=== PATIENT | female | born 1950 | race Caucasian/White ===

== ENCOUNTER 2020-10-16 10:59 | Outpatient (REF) | payer MEDICARE, SELFPAY ==
[2020-10-16 11:20] LABS: MANUAL DIFF FLAG NO
[2020-10-16 11:22] LABS: Basophils Absolute Auto 0.1 X10*3/uL (0.0-0.2); Eosinophils Absolute Auto 0.2 X10*3/uL (0.0-0.4); Eosinophils Percent Auto 3.3 % (0-4); Hemoglobin 15.2 g/dl (12.0-16.0); Imm Gran Abs Auto 0.03 X10*3/uL (0.00-0.03); Imm Gran Pct Auto 0.5 % (0.0-0.4); Lymphocytes Absolute Auto 1.7 X10*3/uL (1.2-4.9); Mean Corpuscular HGB Conc 32.3 g/dl (31.0-35.0); Mean Corpuscular Hemoglobin 31.8 pg (27.0-33.0); Mean Corpuscular Volume 98.3 fL (80-98); Mean Platelet Volume 9.9 fL (9.4-12.3); Monocytes Absolute Auto 0.4 X10*3/uL (0.1-1.2); Neutrophils Absolute Auto 3.6 X10*3/uL (2.0-8.3); Neutrophils Percent Auto 60.2 % (45-73); Platelet Count 236 X10*3/uL (160-400); Red Blood Count 4.78 X10*6/uL (4.20-5.50)
[2020-10-16 12:04] LABS: Iron 98 mcg/dL (30-160); Percent Iron Saturation 30 % (15-50); Total Iron Binding Capacity 325 mcg/dL (228-428); Unsaturated Iron Binding 227 ug/dL
[2020-10-16 12:25] LABS: Ferritin 51 ng/mL (10-250)
== END 2020-10-16 11:00 | disposition home or self-care (01) ==
LOC: HO.BBR 10:59
PROVIDERS: PCP Internal Medicine; Visit Provider Internal Medicine Medical Oncology
DX: E83.110 Hereditary hemochromatosis (principal)
CPT/HCPCS: 36415; 82728; 83540; 85025

== ENCOUNTER 2020-10-16 11:34 | Outpatient (REF) | payer SELFPAY ==
[2020-10-16 12:37] LABS: Cholesterol 233 mg/dL
== END 2020-10-16 11:35 | disposition home or self-care (01) ==
LOC: HO.LNC 11:34
PROVIDERS: Visit Provider Pathology Anatomic Pathology & Clinical Pathology
DX: Z13.220 Encounter for screening for lipoid disorders (principal)
CPT/HCPCS: 82465

== ENCOUNTER 2021-11-11 14:56 | Outpatient (REF) | payer MEDICARE, SELFPAY ==
[2021-11-11 15:54] LABS: MANUAL DIFF FLAG NO
[2021-11-11 16:10] LABS: Basophils Absolute Auto 0.1 X10*3/uL (0.0-0.2); Basophils Percent Auto 1.1 % (0-2); Eosinophils Absolute Auto 0.3 X10*3/uL (0.0-0.4); Eosinophils Percent Auto 3.8 % (0-4); Hematocrit 41.6 % (37.0-47.0); Hemoglobin 13.4 g/dl (12.0-16.0); Imm Gran Abs Auto 0.04 X10*3/uL (0.00-0.03); Imm Gran Pct Auto 0.6 % (0.0-0.4); Lymphocytes Absolute Auto 2.1 X10*3/uL (1.2-4.9); Lymphocytes Percent Auto 29.3 % (20-40); Mean Corpuscular HGB Conc 32.2 g/dl (31.0-35.0); Mean Corpuscular Hemoglobin 29.5 pg (27.0-33.0); Mean Corpuscular Volume 91.4 fL (80.0-98.0); Monocytes Absolute Auto 0.7 X10*3/uL (0.1-1.2); Monocytes Percent Auto 9.1 % (2-11); Neutrophils Percent Auto 56.1 % (45-73); Platelet Count 265 X10*3/uL (160-400); Red Blood Count 4.55 X10*6/uL (4.20-5.50); Red Cell Distribution Width 15.9 % (11.0-16.0); White Blood Count 7.1 X10*3/uL (4.8-10.8)
[2021-11-11 16:53] LABS: Alanine Aminotransferase 16 U/L (0-31); Albumin Level 4.1 g/dL (3.5-5.0); Alkaline Phosphatase 92 U/L (39-117); Anion Gap 13 (12-20); Aspartate Amino Transferase 15 U/L (5-31); Bilirubin Total 0.7 mg/dL (0.0-1.0); Blood Urea Nitrogen 13 mg/dL (9-16); Calcium 9.6 mg/dL (8.4-10.2); Carbon Dioxide 26 mmol/L (22-29); Chloride 107 mmol/L (96-108); Estimated Glomerular Filt Rate > 60; Glucose Random 116 mg/dL (60-115); Iron 83 mcg/dL (30-160); Percent Iron Saturation 27 % (15-50); Potassium 4.9 mmol/L (3.3-5.1); Sodium 141 mmol/L (135-145); Total Iron Binding Capacity 304 mcg/dL (228-428); Total Protein 7.3 g/dL (6.5-8.0); Unsaturated Iron Binding 221 ug/dL
[2021-11-11 17:13] LABS: Ferritin 47 ng/mL (10-250)
== END 2021-11-11 14:57 | disposition home or self-care (01) ==
LOC: HO.LAB 14:56
PROVIDERS: PCP Internal Medicine; Visit Provider Internal Medicine Medical Oncology
DX: E83.110 Hereditary hemochromatosis (principal)
CPT/HCPCS: 36415; 80053; 82728; 83540; 85025

== ENCOUNTER 2024-07-18 13:37 | Outpatient (AMB) | payer MEDICARE, SELFPAY ==
--- NOTE | 2024-07-18 13:39 | MHC.PC.OV ---
Vital Signs 07/18/24 13:44 Height 5 ft 3.5 in Weight 185 lb 2 oz BMI 32.3 BP 132/80 Blood Pressure Location Rt brachial Position Sitting Pulse 90 Pulse Source Pulse Oximeter Pulse Oximetry (%) 94 Oxygen Delivery Method Room Air Intake Visit Reasons: Follow Up Per Dr Kaba Underwater Photographer Required: No Accompanied by: Self / Same As Patient Allergies amlodipine Allergy (Unknown, Verified 07/18/24 13:42) Unknown atorvastatin [Lipitor] Allergy (Unknown, Verified 07/18/24 13:42) Unknown erythromycin base [From E-MYCIN] Allergy (Unknown, Verified 07/18/24 13:42) HIVES ezetimibe [Zetia] Allergy (Unknown, Verified 07/18/24 13:42) Unknown hydrochlorothiazide Allergy (Unknown, Verified 07/18/24 13:42) Unknown lisinopril Allergy (Unknown, Verified 07/18/24 13:42) Unknown morphine Allergy (Unknown, Verified 07/18/24 13:42) rash moxifloxacin [Avelox] Allergy (Unknown, Verified 07/18/24 13:42) Unknown oxycodone Allergy (Unknown, Verified 07/18/24 13:42) Unknown penicillin V Allergy (Unknown, Verified 07/18/24 13:42) Unknown Penicillins [PENICILLINS] Allergy (Unknown, Verified 07/18/24 13:42) HIVES pravastatin Allergy (Unknown, Verified 07/18/24 13:42) Unknown rosuvastatin [Crestor] Allergy (Unknown, Verified 07/18/24 13:42) Unknown E-mycin Allergy (Unknown, Uncoded 07/18/24 13:42) hives Erythromycin Allergy (Unknown, Uncoded 07/18/24 13:42) Unknown From TAGAMET Allergy (Unknown, Uncoded 07/18/24 13:42) SWELLS INTERNALLY From ZANTAC Allergy (Unknown, Uncoded 07/18/24 13:42) SWELLS INTERNALLY PCN Allergy (Unknown, Uncoded 07/18/24 13:42) hives statins Allergy (Unknown, Uncoded 07/18/24 13:42) myalgia Statins Support Allergy (Unknown, Uncoded 07/18/24 13:42) muscle aches zantac, tagamet,omeprazole Allergy (Unknown, Uncoded 07/18/24 13:42) Unknown Tobacco use date assessed: 07/18/24 Fall risk assessment: No Falls in past year Last assessed Fall Risk: 07/18/24 Dental Screening Dental Screen Date: 07/18/24 Did you have a dental visit in the last 12 months?: Yes Did you have a dental problem in the last 6 months where you did not have access to dental care?: No Was dental information given to patient?: Patient has dentist HPI Follow Up Per Dr Kaba HPI Details 73-year-old Obese female with history of asthma, hemochromatosis hypertension hypothyroidism coming in for an acute problem . Patient is up-to-date with colonoscopy July 2021 ER visit for hypertension and chest pain 10/19/2023. 2 weeks ago R shoulder pain. stopped amlodipine aand the shoulder is better but stopped due to leg swelling patient has been cleaning up mom's house with just and developed right shoulder pain denies any fall or trauma but this has been going on for about [address] Gonzalez in [facility] and was given Flexeril as well as MRI done which results are pending. Otherwise asthma still flaring up once in a while on Breo declined any additional medication blood pressure medication continues with amlodipine taken off but will be monitoring for the blood pressure. Discussed that amlodipine would not have anything to do with right shoulder but it does cause lower extremity swelling. [facility] Medical History (Updated 07/18/24 @ 14:31 by Keisha Kaba MD) Breast cancer Surgical History (Updated 07/18/24 @ 14:07 by Keisha Kaba MD) H/O bilateral mastectomy Hx of appendectomy Family History (Updated 07/18/24 @ 13:51 by KRYSTLE Mckeon) Other Colorectal cancer Social History Housing: House Patient Tobacco Use Status: Never used Tobacco e-Cigarette/Vaping Use: Never Used Second Hand Smoke Exposure: No service: No Current occupational status: retired Current occupational exposures/hazards: No Cognitive needs: No Hearing needs: No Vision needs: No Questionnaire PHQ-9 Over the last 2 weeks, how often have you been bothered by any of the following problems? 1. Little interest or pleasure in doing things: not at all 2. Feeling down, depressed, or hopeless: not at all 3. Trouble falling or staying asleep, or sleeping too much: not at all 4. Feeling tired or having little energy: not at all 5. Poor appetite or overeating: not at all 6. Feeling bad about yourself - or that you are a failure or have let yourself or your family down: not at all 7. Trouble concentrating on things, such as reading the newspaper or watching television: not at all 8. Moving or speaking so slowly that other people could have noticed. Or the opposite - being so fidgety or restless that you have been moving around a lot more than usual: not at all 9. Thoughts that you would be better off or of hurting yourself in some way: not at all Total score: 0 Source: Developed by Drs. Marbin Levin, Cira Pretty, Leo Lui and colleagues, with an educational caron from [employer]. Thrive Questionnaire Date Thrive assessed: 07/18/24 I am a: Patient What is your living situation today?: I have a steady place to live Within the past 12 months, did the food you bought not last and you didn't have the money to get more?: Never true Within the past 12 months, did you worry whether your food would run out before you got money to buy more?: Never true Do you have trouble paying for medicines?: No Do you have trouble getting transportation to medical appointments?: No Do you have trouble paying your heating and electricity bill?: No Do you have trouble taking care of your child, family member or friend?: No Do you have trouble with day-to-day activities such as bathing, preparing meals, shopping, managing finances, etc.?: No Are you currently unemployed and looking for a job?: No Are you interested in more education?: No Please select the resources that you would like help with: None Currently or been in a relationship where the following occur: No concerns reported THRIVE Score: 0 AUDIT C Alcohol Use Questionnaire (AUDIT-C) 1. How often do you have a drink containing alcohol?: Monthly or less 2. How many drinks containing alcohol do you have on a typical day when you are drinking?: 1 or 2 3. How often do you have six or more drinks on one occasion?: Never Total Score: 1 MOOSE-7 AMB Questionnaire MOOSE-7 Date MOOSE - 7 assessed: 07/18/24 Feeling nervous, anxious, or on edge: 0 = Not at all Not being able to stop or control worryin = Not at all Worrying too much about different things: 0 = Not at all Trouble relaxin = Not at all Being so restless that it is hard to sit still: 0 = Not at all Becoming easily annoyed or irritable: 0 = Not at all Feeling afraid as if something awful might happen: 0 = Not at all Total MOOSE-7 score (0-4 normal; 5-9 mild; 10-14 moderate; 15-21 severe): 0 Source: Developed by Drs. Marbin Levin, Cira Pretty, Leo Lui and colleagues, with an educational craon from [employer]. Physical exam (Primary Care) Vital Signs: Last Vital Signs Pulse 90 07/18/24 13:44 BP 132/80 07/18/24 13:44 Pulse Ox 94 07/18/24 13:44 Oxygen Delivery Method Room Air 07/18/24 13:44 BMI result Body Mass Index 32.3 Tobacco/Smoking Status: Tobacco use Status Tobacco use date assessed 07/18/24 07/18/24 13:53 Patient Tobacco Use Status Never used Tobacco 07/18/24 13:53 e-Cigarette/Vaping Use Never Used 07/18/24 13:53 PHQ-9: PHQ-9 Score PHQ-9: Total score 0 07/18/24 13:53 Thrive Assessment: Date of Thrive Assessment Date Thrive assessed 07/18/24 07/18/24 13:53 Currently or been in a relationship where the following occur: No concerns reported Const General: alert; No acute distress Eyes Conjunctivae: conjunctivae normal Resp Auscultation: clear to auscultation bilaterally Cardio Rate: regular rate Rhythm: regular rhythm GI Inspection: Yes normal to inspection Extrem General: Yes normal to inspection and No edema Assessment and Plan Assessment & Plan (1) Hypercholesterolemia: Code(s): E78.00 - Pure hypercholesterolemia, unspecified Plan: Avoid fried foods, chicken skin, eggs, butter margarine, pastries and meat. Be it pork or beef they have a lot of cholesterol LDL goal of less than 130 and triglyceride of less than 150 on Zetia only due to statin intolerance. (2) Asthma: Code(s): J45.909 - Unspecified asthma, uncomplicated Plan: On Breo inhaler and Xopenex (3) Hemochromatosis: Code(s): E83.119 - Hemochromatosis, unspecified Plan: Continue to follow-up with Hematology-Oncology (4) Hypothyroidism: Code(s): E03.9 - Hypothyroidism, unspecified Plan: On thyroid medication need repeat blood work.- [employer] bloodwork (5) Hypertension: Code(s): I10 - Essential (primary) hypertension Plan: Continue with blood pressure medication. Decrease salt intake and exercise on losartan 50 mg twice a day metoprolol succinate. With the amlodipine taken off will continue to monitor blood pressure. (6) GERD (gastroesophageal reflux disease): Code(s): K21.9 - Gastro-esophageal reflux disease without esophagitis Plan: Avoid the foods that causes that usually spicy foods, tomato products, juices, coffee, soda and foods that your sensitive to. After eating do not lie down, allow 3-4 hours before in lie down. And keep the head of bed above 30 degrees to avoid the acid from going up. (7) Osteoporosis: Code(s): M81.0 - Age-related osteoporosis without current pathological fracture Plan: Presently on alendronate and bone density reminder (8) Right shoulder pain: Code(s): M25.511 - Pain in right shoulder Plan: Resolving, most likely from the cleaning of the house. Heat does help, continue with activity. MRI pending Coding Level of Care Code Est Pt Level 4 (77630) Diagnoses Hypercholesterolemia E78.00 Asthma J45.909 Hemochromatosis E83.119 Hypothyroidism E03.9 Hypertension I10 GERD (gastroesophageal reflux disease) K21.9 Osteoporosis M81.0 Right shoulder pain M25.511
[2024-07-18 13:44] VITALS: BP 132/80; PULSE 90; O2SAT 94; BMI 32.3
== END 2024-07-18 14:31 | disposition home or self-care (01) ==
PROVIDERS: PCP Internal Medicine; Visit Provider Internal Medicine
DX: E78.00 Pure hypercholesterolemia, unspecified (principal); J45.909 Unspecified asthma, uncomplicated; E83.119 Hemochromatosis, unspecified; E03.9 Hypothyroidism, unspecified; I10 Essential (primary) hypertension; K21.9 Gastro-esophageal reflux disease without esophagitis; M81.0 Age-related osteoporosis without current pathological fracture; M25.511 Pain in right shoulder
CPT/HCPCS: 99214

== ENCOUNTER → 2025-08-03 10:53 | Outpatient (BNV) | payer MEDICARE, SELFPAY | PROVIDERS: Visit Provider Internal Medicine Medical Oncology | DX: E83.119 Hemochromatosis, unspecified (principal); Z86.000 Personal history of in-situ neoplasm of breast | CPT/HCPCS: 99204 ==

== ENCOUNTER 2025-08-14 12:58 | Outpatient (REF) | payer MEDICARE, SELFPAY ==
--- OUTSIDE RECORDS SUMMARY | 2025-08-14 17:56 | XMS_ITS | Clinical Summary ---
Author Organization [facility] Address [address] [place] [address] Phone Care Team Providers Care Heavy Equipment Operator Apprentice Name Role Phone Zainab Wheeler MD Primary Care Provider [phone] Allergies Active Allergy Reactions Criticality Noted Date Comments Cimetidine Hives Low 08/11/2016 Meperidine Other (See Comments) High 09/17/2018 Hear block Hydrochlorothiazide Rash Low 04/26/2019 Atorvastatin Hives Low 04/26/2019 Omeprazole Hives Low 04/26/2019 Pantoprazole 05/25/2020 Penicillins Hives Low 12/10/2012 Oxycodone-Acetaminophen Nausea and/or Vomiting Medium 04/26/2019 Ranitidine Hcl Hives Low 08/11/2016 Izyunnl-Ipa-Gwa Reductase Inhibitors Musculoskeletal Pain Medium 09/17/2018 Medications levalbuterol (XOPENEX) 0.31 mg/3 mL nebulizer solution Inhale into the lungs. Active SYNTHROID 88 mcg tablet 100 mcg. 8 Active metoprolol succinate (TOPROL-XL) 100 MG 24 hr tablet Take 100 mg by mouth. 8 Active BREO ELLIPTA 100-25 mcg/dose inhaler 9 Active montelukast (SINGULAIR) 10 mg tablet Take 10 mg by mouth. 0 Active esomeprazole (NEXIUM) 20 MG capsule Take 20 mg by mouth. 0 Active losartan (COZAAR) 25 MG tablet 2 Active ezetimibe (ZETIA) 10 mg tablet Take 1 tablet by mouth every morning. 3 Active amLODIPine (NORVASC) 5 MG tablet Take 5 mg by mouth. 3 Active alendronate (FOSAMAX) 70 MG tablet 4 Active cyclobenzaprine (FLEXERIL) 10 MG tabletIndicatio ns:Cervical facet joint syndrome Take 1 tablet (10 mg total) by mouth 3 (three) times a day as needed. 90 tablet 4 Active Additional Information Patient not taking.Reported on 07/12/2025 azithromycin (ZITHROMAX Z-EDDIE) 250 MG tablet Take 2 tablets on day 1, and take 1 tablet on days 2 through 5 for a total of 5 days. 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 Hereditary hemochromatosis 12/10/201209/13 Pure hypercholesterolemia 12/10/20122022 Tendinitis, de Quervain's 12/10/20122022 Encounters Date Type Department Care Team Description 07/12/2025 12:00 PM EDT Office Visit [facility] at [address] [address] Emilia Vincent NP Cat bite, initial encounter (Primary Dx) from Last 3 Months Immunizations Immunization Administration Dates Next Due Pneumococcal conjugate PCV13 05/03/2019(Deferred : Patient Refused) Tdap 05/06/2024 Social History Tobacco Use Types Packs/Day Years Used Date Smoking Tobacco: Never Smokeless Tobacco: Never Alcohol Use Standard Drinks/Week Comments Yes 1 (1 standard drink = 0.6 oz pur e alcohol) once a month Education Answer Date Recorded Are you interested in more education? Not on frantz e 03/27/2023 Are you concerned about learning? Not on file 03/27/2023 No 03/27/2023 No 03/27/2023 Digital Access Answer Date Recorded No 04/27/2023 No 04/27/2023 Reliable internet access at home? Not on file 04/27/2023 Device with a working camera? Not on file Comments No Sex and Gender Information Value Date Recorded Sex Assigned at Not on file Legal Sex Female 4:31 PM EDT Gender Identity Not on file Sexual Orientation Not on file Last Filed Vital Signs Vital Sign Reading Time Taken Comments Blood Pressure 128/82 07/12/2025 12:05 PM EDT Pulse 71 07/12/2025 12:05 PM EDT Temperature 37.1 C (98.7 F) 07/12/2025 12:05 PM EDT Respiratory Rate 18 07/12/2025 12:05 PM EDT Oxygen Saturation 99% 07/12/2025 12:05 PM EDT Inhaled Oxygen Concentration - - Weight 82.6 kg (182 lb) 07/12/2024 2:52 PM EDT Height 162.6 cm (5' 4 ) 07/12/2024 2:52 PM EDT Body Mass Index 31.24 07/12/2024 2:52 PM EDT Plan of Treatment Health Maintenance Due Date Last Done Comments LIPID PANEL 1950 DEPRESSION SCREENING 1962 HEPATITIS C SCREENING 1968 ZOSTER VACCINES (1 of 2) 1969 COLOGUARD 1995 COLONOSCOPY 1995 COLORECTAL CANCER SCREENING 1995 FIT TEST 1995 FOBT 1995 SIGMOIDOSCOPY 1995 VIRTUAL COLONOSCOPY 1995 OSTEOPOROSIS SCREENING INITI AL (ONE-TIME) 2015 CREATININE LEVEL 05/03/2020 05/03/2019, 04/13/2019 POTASSIUM LEVEL 05/03/2020 05/03/2019, 04/13/2019 PNEUMOCOCCAL VACCINES (50+ years) (2 of 2 - PCV) 08/15/2020 08/15/2019 TSH LEVEL 06/27/2025 06/27/2024 INFLUENZA VACCINE (#1) 2025 8, 11/13/2017 COVID-19 VACCINE (2 - 2024-2 6 season) 2025 11/02/2021 RSV VACCINE (1 - 1-dose 75+ series) 2025 Adult Td,Tdap Booster 05/06/2034 05/06/2024 , 04/12/2018 SMOKING STATUS SCREENING (On ce After 26 Yrs) Completed 05/06/2024 HEPATITIS A VACCINES Aged Out No long er eligible based on patient's age to complete this topic HIB VACCINES Aged Out No longer eligi ble based on patient's age to complete this topic MENINGOCOCCAL VACCINES (ACWY) Aged Out No longer eligible based on patient's age to complete this topic MENINGOCOCCAL VACCINES (B) Aged Out N o longer eligible based on patient's age to complete this topic Medical Devices Implanted Type Area Keno Manager Device Identifier Shelf Expiration Date Model / Serial / Lot Cement Bone Biomet Standard R 1x40 - [id number] Implanted:Qty: 1 on 05/02/2019 by Brandon Valenzuela MD at [facility] Right: Knee NEGRITO / DIV OF BRISTOL SQUIBB 04/29/2023 [id number] / / [id number] Knee Insert [id number] Implant Bring Vanguard 08 - [id number] Implanted:Qty: 1 on 05/02/2019 by Brandon Valenzuela MD at [facility] Left: Knee [employer] 02/16/2024 [id number] / / [id number] Tray Beam 67mm Tibial Primary Vanguard Montara I Revision Interlock Cemented - [id number] Implanted:Qty: 1 on 05/02/2019 by Brandon Valenzuela MD at [facility] Right: Knee [employer] 11/01/2028 [id number] / / [id number] Box Component 62.5mm Femoral Knee Vanguard Interlok Montara Posterior Stabilized Open Cemented Right - [id number] Implanted:Qty: 1 on 05/02/2019 by Brandon Valenzuela MD at [facility] Right: Knee [employer] 02/03/2029 [id number] / / [id number] Knee Implant Component 24x8.5mm Prosthesis Patellar Vanguard Series A Asymmetric 3 Peg - [id number] Implanted:Qty: 1 on 05/02/2019 by Brandon Valenzuela MD at [facility] Right: Knee NEGRITO / DIV OF Storrz 09/12/2023 [id number] / / [id number] Knee Insert [id number] Implant Bring Vanguard 08 - [id number] Implanted:Qty: 1 on 05/02/2019 by Brandon Valenzuela MD at [facility] Right: Knee [employer] 03/23/2024 [id number] / / [id number] Cement Bone Biomet Standard R 1x40 Us - [id number] Implanted:Qty: 1 on 05/02/2019 by Brandon Valenzuela MD at [facility] Left: Knee NEGRITO / DIV OF Storrz 04/29/2023 [id number] / / [id number] Knee Implant Component 31x8mm Prosthesis Patellar Vanguard Series A Asymmetric 3 Peg - [id number] Implanted:Qty: 1 on 05/02/2019 by Brandon Valenzuela MD at [facility] Left: Knee NEGRITO / DIV OF Storrz 03/15/2024 [id number] / / [id number] Tray Beam 67mm Tibial Primary Vanguard Montara I Revision Interlock Cemented - [id number] Implanted:Qty: 1 on 05/02/2019 by Brandon Valenzuela MD at [facility] Left: Knee [employer] 01/20/2029 [id number] / / [id number] Box Component 62.5mm Femoral Knee Vanguard Interlok Montara Posterior Stabilized Open Cemented Left - [id number] Implanted:Qty: 1 on 05/02/2019 by Brandon Valenzuela MD at [facility] Left: Knee [employer] 01/03/2029 [id number] / / [id number] Procedures Procedure Name Priority Date/Time Associated Diagnosis Comments TSH Routine 06/27/2024 1:30 PM EDT Acquired hypothyroidism BASIC METABOLIC PANEL Routine 05/03/2019 4:44 AM EDT from Last 3 Months or Most Recently Relevant to Health Maintenance Results * TSH (06/27/2024 1:30 PM EDT) TSH 1.31 0.27 - 4.20 uIU/mL [facility] Blood 06/27/2024 1:30 PM EDT 06/27/2024 1:40 PM EDT us Zainab Wheeler MD LAB BLOOD ORDERABLES Debo peralta Result Performing Organization Address [facility] Co de Phone Number [address] [address] * (ABNORMAL) Basic metabolic panel (05/03/2019 4:44 AM EDT) SODIUM 141 133 - 146 mmol/L [facility] CHLORIDE 106 96 - 108 mmol/L [facility] POTASSIUM 4.0 3.3 - 5.1 mmol/L [facility] CO2 25 21 - 35 mmol/L [facility] BUN 9 6 - 19 mg/dL [facility] CREATININE 0.60 0.5 - 1.5 mg/dL [facility] GLUCOSE 116(H) 70 - 99 mg/dL [facility] CALCIUM 8.5 8.4 - 10.3 mg/dL [facility] EGFR 94 >59 mL/min/1.7 3m2 [facility] Comment:If patient is black, multiply result by 1.159. Estimated glomerular filtration rate calculated using the CKD-EPI equation. ANION GAP 14 10 - 20 mmol/L [facility] Blood 05/03/2019 4:44 AM EDT 05/03/2019 4:54 AM EDT us Brandon Valenzuela MD LAB BLOOD ORDERABLES Final R esult Performing Organization Address [facility] Co de Phone Number [address] [address] from Last 3 Months or Most Recently Relevant to Health Maintenance Insurance MEDICARE PART A & B [employer] MEDEX SUPPLEMENT MEDICARE PART A & B [employer] MEDEX SUPPLEMENT MEDICARE PART A & B [employer] SUPPLEMENT MEDICARE PART A & B [employer] SUPPLEMENT MEDICARE PART A & B MEDEX SUPPLEMENT MEDICARE PART A & B [employer] MEDEX SUPPLEMENT MEDICARE PART A & B [employer] MEDEX SUPPLEMENT MEDICARE PART A & B [employer] MEDEX SUPPLEMENT MEDICARE PART A & B [employer] MEDEX SUPPLEMENT Advance Directives For more information, please contact: [phone] (9AM - 5PM [facility], Thursday-Thursday) Documents on File Type Date Recorded Patient Speech Pathology Teacher Expl anation Healthcare Proxy 05/06/2019 12:05 PM * Full Code (Presumed) (Latest Code Status on File) Date Activated Date Inactivated Comments 05/02/2019 3:34 PM 05/05/2019 4:32 PM * Full Code (Presumed) Date Activated Date Inactivated Comments 05/02/2019 6:25 AM 05/02/2019 3:34 PM Care Teams Heavy Equipment Operator Apprentice Relationship Specialty Start Date End Date Zainab Wheeler MD [address] [place] [address] PCP - General Internal Medicine 06/28/24 Additional Source Comments The information contained in this document represents components of the legal health record. It is not the complete legal health record.[facility]
--- OUTSIDE RECORDS SUMMARY | 2025-08-14 17:57 | XMS_ITS | Encounter Summary ---
Author Organization [facility] Address [address] [place] [address] Phone Care Team Providers Care Information Officer Name Role Phone Keisha Kaba MD Primary Care Provider [phone] Pcp, Unknown Primary Care Provider Unavailabl e Unknown, Unknown Primary Care Provider Zainab Trujillo MD Primary Care Provider [phone] Encounter Details Date Type Department Care Team (Late st Contact Info) Description 05/02/2019 Procedure Pass OR Admitting Dept - Virtual Department [address] [place] [address] Social History Tobacco Use Types Packs/Day Years Used Date Smoking Tobacco: Never Smokeless Tobacco: Never Alcohol Use Standard Drinks/Week Comments Yes 1 (1 standard drink = 0.6 oz pur e alcohol) once a month Comments No Sex and Gender Information Value Date Recorded Sex Assigned at Not on file Legal Sex Female 4:31 PM EDT Gender Identity Not on file Sexual Orientation Not on file documented as of this encounter Plan of Treatment Not on file documented as of this encounter Visit Diagnoses Not on filedocumented in this encounter Additional Health Concerns Infection Onset Date Last Indicated Resolved Time CoV-Risk 07/23/2022 07/23/2022 08/03/2022 1:21 AM EDT COVID-19 09/13/2023 09/13/2023 10/04/2023 1:21 AM EDT documented as of this encounter Care Teams Information Officer Relationship Specialty Start Date End Date Keisha Kaba MD [address] [place] [address] PCP - General Internal Medicine 09/13/18 07/22/22 Pcp, Unknown PCP - General 07/23/22 09/12/23 Unknown, Veronica, PCP - General 09/13/23 06/27/24 Zainab Wheeler MD [address] [place] [address] PCP - General Internal Medicine 06/28/24 documented as of this encounter Additional Source Comments The information contained in this document represents components of the legal health record. It is not the complete legal health record.[facility]
--- OUTSIDE RECORDS SUMMARY | 2025-08-14 17:57 | XMS_ITS | Patient Health Record ---
Author Organization [facility] Address [address] [place] [address] Care Team Providers Care Hairspring Cutter Name Role Phone Keisha Kaba MD Primary Care Provider Marbin Luz [phone] Allergies Allergen (clinical drug ingredient) Drug/Non Drug Allergy documented on EMR Reaction Allergy Type Onset Date Status Penicillin Unknown Drug Allergy Active Zantac Unknown Drug Allergy Active erythromycin Erythromycin Unknown Drug Allergy A ctive Reason For Referral No Information Medications Medication SIG (Take, Route, Fr equency, Duration) Notes Start Date End Date Status Protonix 40 MG 1 tablet Orally Once a day for 90 days 08/24/2014 Active Protonix 40 MG 1 tablet Orally Once a day for 90 days 03/28/2015 Active Plan Of Treatment No Information Insurance Providers Payer Name Payer Address Payer Phone Subscriber Number Group Number Insured Name Patient Relationship to Insured Coverage Start Date Coverage End Date [facility] [address] [place] [address] [phone] [id number] NITHYA WILKINSON Self - patient is the insured Medical (General) History Medical History History ICD Code colonoscopy 11-05-2010 colon polyps diverticulosis reflux Surgical History Surgery Date(Month/Year) bilateral mastectomy reconstructive breast surgery
--- OUTSIDE RECORDS SUMMARY | 2025-08-14 17:57 | XMS_ITS | Encounter Summary ---
Author Organization [facility] Address [address] [place] [id number] Phone Care Team Providers Care Computer Information Science Professor Name Role Phone Zainab Wheeler MD Primary Care Provider [phone] Encounter Details Date Type Department Care Team (Late st Contact Info) Description 07/08/2024 Procedure Pass [facility], [address] [place] [address] Social History Tobacco Use Types Packs/Day Years [...] Diagnoses Not on filedocumented in this encounter Care Teams Computer Information Science Professor Relationship Specialty Start Date End Date Zainab Wheeler MD [address] [place] [address] PCP - General Internal Medicine 06/28/24 documented as of this encounter Additional Source Comments The information contained in this document represents components of the legal health record. It is not the complete legal health record.[facility]
== END 2025-08-14 12:59 | disposition home or self-care (01) ==
LOC: HO.BBR 12:58
PROVIDERS: Visit Provider Internal Medicine Medical Oncology
DX: Z13.89 Encounter for screening for other disorder (principal)